=== PATIENT | female | born 1980 | race Caucasian/White ===

== ENCOUNTER 2017-07-27 04:00 | Observation (INO) ==
--- NOTE | 2017-07-27 04:29 | Emergency Department Note ---
Disposition Clinical Impression: SOB (shortness of breath) Chest pain Qualifiers: Chest pain type: unspecified Qualified Code(s): R07.9 - Chest pain, unspecified Disposition: Admitted As Inpatient Condition: Fair Referrals: NONE,PCP [Primary Care Provider] - Forms: ED Satisfaction Letter Time of Disposition: 05:46 Arrhythmia/Palpitations HPI - General Chief Complaint: ED Arrhythmia/Palpitations Stated Complaint: "My wrist Monitor said Heart Issues" Time Seen by Provider: 07/27/17 04:06 Source: patient, family Limitations: no limitations Nursing Notes Reviewed: Yes Vital Signs Reviewed: Yes - History of Present Illness HPI Narrative: 37-year-old female complains of chest pressure and palpitations that started 2 hours ago. Patient states she woke up from sleep and then felt very anxious and instantly felt pain palpitations, and SOB. She complains that she could feel her heart racing and thumping in her chest. Patient states she has chest pressure 7/10 at constant mid substernal without radiation to arms or neck. Denies diaphoresis. Admits to continued shortness of breath. Symptoms are not exacerbated by exertion but is persistent at rest. Patient denies any hemoptysis, recent travel, she has an IUD (paraguard) implanted was placed 2 years ago, she denies any past history for DVTs or blood clots, and no prior PE. - Related Data Home Medications Medication Instructions Recorded Confirmed No Known Home Drugs 07/27/17 07/27/17 Allergies Allergy/AdvReac Type Severity Reaction Status Date / Time Amoxicillin [From Amoxil] AdvReac Vomiting Verified 10/19/15 07:23 All systems ED: reviewed and negative except as stated. Review of Systems: As Per HPI Constitutional: Denies: fever, chills, weakness Eyes: Denies: vision change ENT ED: Denies: congestion Cardiovascular: Reports: chest pain, palpitations. Denies: dyspnea on exertion , orthopnea Respiratory: Reports: dyspnea. Denies: cough, wheezes Gastrointestinal: Reports: nausea. Denies: abdominal pain, vomiting Past Medical History - Past Medical History Attestation: Yes The following information was validated with the patient. Source: patient, nursing notes reviewed Medical history: Reports: other Psychiatric history: Reports: no psych history - Social History Smoking Status: Never smoker Smokeless Tobacco Status: No Alcohol use: Reports: occasionally Drug use: Reports: none Physical Exam Vital Signs Temperature 97.7 F 07/27/17 04:04 Pulse Rate 105 07/27/17 04:04 Respiratory Rate 16 07/27/17 04:04 Blood Pressure 159/88 07/27/17 04:04 O2 Sat by Pulse Oximetry 99 07/27/17 04:04 Temperature 97.7 F 07/27/17 04:04 Pulse Rate 105 07/27/17 04:04 Respiratory Rate 16 07/27/17 04:04 Blood Pressure 159/88 07/27/17 04:04 O2 Sat by Pulse Oximetry 99 07/27/17 04:04 Oxygen Delivery Oxygen Delivery Room Air CONSTITUTIONAL: Well-appearing; well-nourished; A&O X 3, in no apparent distress. Vital signs show tachycardia at 105 and hypertension at 159/88. Tachypnea HEAD: Normocephalic; atraumatic EYES: PERRL, no scleral icterus NOSE: The nose is normal in appearance without rhinorrhea NECK: No JVD or distended neck veins RESP: Normal chest excursion with respiration; breath sounds clear and equal bilaterally; no wheezes, rhonchi, or rales CARD: Regular rhythm, without murmurs, rub or gallop ABD: Non-distended; non-tender, soft, without rigidity, rebound or guarding,no pulsatile mass CHEST: No pain with palpation SKIN: Normal for age and race; warm and dry without diaphoresis ; no apparent lesions EXTREMITIES: Pulses are 2 plus and equal times 4 extremities, no peripheral edema or calf muscle pain - General Limitations: no limitations General appearance: alert, in no apparent distress Course - Reevaluation(s) Reevaluation #1: Patient states the pain symptoms after 3 nitroglycerin sublingually is 1/10 maybe. She states she is very comfortable at this time. Chest pressure and shortness of breath have greatly diminished. Patient received nitroglycerin paste on her chest. Patient's hypertension is now normalized at 132/88. Time: 05:03 Reevaluation #2: D-dimer negative Time: 05:10 Reevaluation #3: Patient still pain free Time: 05:46 - Consultations Consultation #1: Dr. Garcia the hospitalist as accepted patient for admission at 05 for 3 hours in stable condition and pain free Time: 05:45 Vital Signs Temperature 97.7 F 07/27/17 04:04 Pulse Rate 105 07/27/17 04:04 Respiratory Rate 16 07/27/17 04:04 Blood Pressure 159/88 07/27/17 04:04 O2 Sat by Pulse Oximetry 99 07/27/17 04:04 Temperature 97.7 F 07/27/17 04:04 Pulse Rate 83 07/27/17 05:16 Respiratory Rate 18 07/27/17 05:16 Blood Pressure 153/101 07/27/17 05:16 O2 Sat by Pulse Oximetry 98 07/27/17 05:16 Oxygen Delivery Oxygen Delivery Room Air Arrhythmia/Palpitations - MDM Narrative Medical decision making narrative: Patient presents with acute onset chest pressure mid substernal concerning for ACS/[place]. Patient is low risk under heart score and has currently no risk factors but has a family history for cardiac related of grandmother at age 60 and mother had first stent at age 50. Patient's acute sudden onset of tachycardia and shortness of breath are concerning for possible PE. Unable to PERC patient out. Patient is low risk under Wells PE score. D-dimer was ordered which was negative dismissing PE at this time. Patient's pain symptoms were completely reduce nitroglycerin treatment. Patient took 325 mg of aspirin prior to coming in to the ED. IV normal saline 1 L has been given as well. Patient's labs were unremarkable for any hemoglobinopathy, or anything abnormal on her chemistry. Patient's troponin was negative. Patient is low risk with a heart score of 2. Patient is feeling better, but has a sensation that something is a very wrong. Patient was feeling anxious when she arrived but does not have a history of anxiety. Patient states she would not be here if it was not very important. Patient's records show that she is only had 2 ED visits between and 2013. Given the patient's workup is negative and she is considered low risk, I tend to agree with the patient for precipitating a very convincing story with a high risk family record. I recommend admission for the patient for further cardiac evaluation. Patient understands agrees with treatment and plan Dr. Garcia the hospitalist as accepted patient for admission at 0543 hours in stable condition and pain free - Lab Data Lab results reviewed: Yes I reviewed the patient's lab results. Lab results narrative: Short CBC 07/27/17 Range/Units 04:32 WBC 7.9 (4.3-11.1) K/mcL Hgb 12.6 (11.5-15.4) g/dL Hct 39.2 (35.3-44.9) % Plt Count 191 (140-400) K/mcL Neutrophils # 4.6 (1.6-8.9) K/mcL BMP 07/27/17 Range/Units 04:32 Sodium 139 (136-145) mEq/L Potassium 4.5 (3.5-5.1) mEq/L Chloride 107 (98-107) mEq/L Carbon Dioxide 23 (23-29) mEq/L BUN 14 (6-20) mg/dL Creatinine 0.91 (0.60-1.20) mg/dL Glucose 165 H (70-105) mg/dL Calcium 9.0 (8.6-10.3) mg/dL Cardiac Enzymes 07/27/17 Range/Units 04:32 Troponin I < 0.03 (< 0.04) ng/mL Result diagrams: 07/27/17 04:32 07/27/17 04:32 Lab Results 07/27/17 07/27/17 07/27/17 Range/Units 04:32 04:32 04:32 WBC 7.9 (4.3-11.1) K/mcL RBC 4.10 (3.82-4.97) M/mcL Hgb 12.6 (11.5-15.4) g/dL Hct 39.2 (35.3-44.9) % MCV 95.6 (83.0-100.0) fL MCH 30.7 (28.0-33.3) pg MCHC 32.1 (31.6-35.5) g/dL RDW 12.1 (11.5-14.5) % Plt Count 191 (140-400) K/mcL MPV 11.5 (9.4-12.4) fL Immature Gran % 0.4 (0-4) % Seg Neutrophils % 58.5 % Lymphocytes % 30.6 % Monocytes % 7.6 % Eosinophils % 2.3 % Basophils % 0.6 % Neutrophils # 4.6 (1.6-8.9) K/mcL Lymphocytes # 2.4 (0.6-4.6) K/mcL Monocytes # 0.6 (0.0-1.3) K/mcL Eosinophils # 0.2 (0.0-0.6) K/mcL Basophils # 0.1 (0.0-0.2) K/mcL D-Dimer 358 (0-500) ng/mLFEU Sodium 139 (136-145) mEq/L Potassium 4.5 (3.5-5.1) mEq/L Chloride 107 (98-107) mEq/L Carbon Dioxide 23 (23-29) mEq/L BUN 14 (6-20) mg/dL Creatinine 0.91 (0.60-1.20) mg/dL Est GFR ( Amer) > 60 (> 60) Est GFR (Non-Af Amer) > 60 (> 60) BUN/Creatinine Ratio 15 (6-26) Glucose 165 H (70-105) mg/dL Calculated Osmolality 292 (280-300) Calcium 9.0 (8.6-10.3) mg/dL Troponin I < 0.03 (< 0.04) ng/mL - Radiology Data Radiology results reviewed: Yes I reviewed the patient's radiology results. Chest X-Ray 07/27/17 04:32 IMPRESSION: No acute process. D/ / Jc Coronado / Jc Coronado Interpreting Provider: Jc Coronado - EKG Data EKG attestation: Yes I reviewed and interpreted this EKG. EKG results narrative: EKG taken 07/27/2017 at 0409 hrs. shows a sinus tachycardia at a rate of [address] elevations in any leads, very mild ST depressions in aVF, V3. No sign of Brugada, Wellens, WPW. no previous EKG for comparison. Heart Score - Score History: Moderately Suspicious EKG: Non Specific repolarisation Disturbance Age: Less than 45 Risk Factors: No risk factors known Troponin: Less than normal limit HEART Score Total: 2
[2017-07-27] MEDS ORDERED: 0.9 % Sodium Chloride 1,000 ML IVC ONE (04:32)
[2017-07-27] MEDS ORDERED: Nitroglycerin 0.4 MG TAB.SUBL SL ONE (04:36)
[2017-07-27] MEDS: Nitroglycerin 0.4 MG TAB.SUBL SL PRN ×3 (04:40→04:50)
[2017-07-27 04:45] LABS: Basophils # 0.1 K/mcL (0.0-0.2); Basophils % 0.6 %; Eosinophils # 0.2 K/mcL (0.0-0.6); Eosinophils % 2.3 %; Hematocrit 39.2 % (35.3-44.9); Hemoglobin 12.6 g/dL (11.5-15.4); Immature Granulocytes % 0.4 % (0-4); Lymphocytes # 2.4 K/mcL (0.6-4.6); Lymphocytes % 30.6 %; Mean Corpuscular HGB Conc 32.1 g/dL (31.6-35.5); Mean Corpuscular Hemoglobin 30.7 pg (28.0-33.3); Mean Corpuscular Volume 95.6 fL (83.0-100.0); Mean Platelet Volume 11.5 fL (9.4-12.4); Monocytes # 0.6 K/mcL (0.0-1.3); Monocytes % 7.6 %; Neutrophils # 4.6 K/mcL (1.6-8.9); Platelet Count 191 K/mcL (140-400); Red Cell Distribution Width 12.1 % (11.5-14.5); Segmented Neutrophils % 58.5 %
--- NOTE | 2017-07-27 05:03 | Emergency Department Note ---
Disposition Clinical Impression: SOB (shortness of breath) Chest pain Qualifiers: Chest pain type: unspecified Qualified Code(s): R07.9 - Chest pain, unspecified Disposition: Admitted As Inpatient Condition: Fair General Adult HPI - General Chief complaint: ED Arrhythmia/Palpitations Stated complaint: "My wrist Monitor said Heart Issues" Time Seen by Provider: 07/27/17 04:06 Source: patient, family Limitations: no limitations - History of Present Illness Pain Scale: 5 - Related Data Home Medications Medication Instructions Recorded Confirmed No Known Home Drugs 07/27/17 07/27/17 Allergies Allergy/AdvReac Type Severity Reaction Status Date / Time Amoxicillin [From Amoxil] AdvReac Vomiting Verified 10/19/15 07:23 Constitutional: Denies: fever, chills, weakness Cardiovascular: Reports: chest pain, palpitations. Denies: dyspnea on exertion , orthopnea Respiratory: Reports: dyspnea. Denies: cough, wheezes Gastrointestinal: Reports: nausea. Denies: abdominal pain, vomiting Past Medical History - Past Medical History Medical history: Reports: other Psychiatric history: Reports: no psych history - Social History Smoking Status: Never smoker Smokeless Tobacco Status: No Alcohol use: Reports: occasionally Drug use: Reports: none Physical Exam - General Limitations: no limitations General appearance: alert, in no apparent distress Course Vital Signs Temperature 97.7 F 07/27/17 04:04 Pulse Rate 105 07/27/17 04:04 Respiratory Rate 16 07/27/17 04:04 Blood Pressure 159/88 07/27/17 04:04 O2 Sat by Pulse Oximetry 99 07/27/17 04:04 Temperature 97.7 F 07/27/17 04:04 Pulse Rate 83 07/27/17 05:16 Respiratory Rate 18 07/27/17 05:16 Blood Pressure 153/101 07/27/17 05:16 O2 Sat by Pulse Oximetry 98 07/27/17 05:16 Oxygen Delivery Oxygen Delivery Room Air Medical Decision Making - Lab Data Result diagrams: 07/27/17 04:32 07/27/17 04:32 Lab Results 07/27/17 07/27/17 07/27/17 Range/Units 04:32 04:32 04:32 WBC 7.9 (4.3-11.1) K/mcL RBC 4.10 (3.82-4.97) M/mcL Hgb 12.6 (11.5-15.4) g/dL Hct 39.2 (35.3-44.9) % MCV 95.6 (83.0-100.0) fL MCH 30.7 (28.0-33.3) pg MCHC 32.1 (31.6-35.5) g/dL RDW 12.1 (11.5-14.5) % Plt Count 191 (140-400) K/mcL MPV 11.5 (9.4-12.4) fL Immature Gran % 0.4 (0-4) % Seg Neutrophils % 58.5 % Lymphocytes % 30.6 % Monocytes % 7.6 % Eosinophils % 2.3 % Basophils % 0.6 % Neutrophils # 4.6 (1.6-8.9) K/mcL Lymphocytes # 2.4 (0.6-4.6) K/mcL Monocytes # 0.6 (0.0-1.3) K/mcL Eosinophils # 0.2 (0.0-0.6) K/mcL Basophils # 0.1 (0.0-0.2) K/mcL D-Dimer 358 (0-500) ng/mLFEU Sodium 139 (136-145) mEq/L Potassium 4.5 (3.5-5.1) mEq/L Chloride 107 (98-107) mEq/L Carbon Dioxide 23 (23-29) mEq/L BUN 14 (6-20) mg/dL Creatinine 0.91 (0.60-1.20) mg/dL Est GFR ( Amer) > 60 (> 60) Est GFR (Non-Af Amer) > 60 (> 60) BUN/Creatinine Ratio 15 (6-26) Glucose 165 H (70-105) mg/dL Calculated Osmolality 292 (280-300) Calcium 9.0 (8.6-10.3) mg/dL Troponin I < 0.03 (< 0.04) ng/mL Attestation Statement - Attestation Attestation: I examined this patient and my medical decision-making was reviewed with the Resident Physician. I agree with the documented findings, disposition and treatment plan as described except to the extent set forth below. Patient presents to the ED with chief complaint of chest pain or shortness of breath that she woke up with in the middle the night. Describes it as a pressure. No cardiac history. She does have an extensive family history including a mother had her first stent placed in her early 50s. On examination she is in no distress. Heart regular tachycardia. Lungs clear. She is hypertensive. Plan. Cardiac workup. Patient's pain is resolving with nitroglycerin. Workup unremarkable. Patient admitted for further cardiac evaluation.
[2017-07-27] MEDS ORDERED: Nitroglycerin 1 INCH/GM PACKET TP ONE (05:04)
[2017-07-27 05:15] LABS: Troponin I < 0.03 ng/mL (< 0.04)
[2017-07-27 05:17] LABS: BUN/Creatinine Ratio 15 (6-26); Blood Urea Nitrogen 14 mg/dL (6-20); Carbon Dioxide 23 mEq/L (23-29); Chloride 107 mEq/L (98-107); Glucose 165 mg/dL (70-105); Osmolality,Calculated 292 (280-300); Potassium 4.5 mEq/L (3.5-5.1); Sodium 139 mEq/L (136-145); eGFR For African Americans > 60 (> 60); eGFR For Non-African Americans > 60 (> 60)
[2017-07-27] MEDS ORDERED: Naloxone 0.4 MG/ML INJ IVP PRN (05:42)
[2017-07-27] MEDS ORDERED: Acetaminophen 325 MG TABLET PO PRN (05:42)
[2017-07-27] MEDS ORDERED: *HR* HYDROcodone/Acet 5/325 mg TABLET PO PRN (05:42)
[2017-07-27] MEDS ORDERED: Ondansetron 4 MG/2 ML VIAL IVP PRN (05:42)
[2017-07-27] MEDS ORDERED: *HR* LORazepam 0.5 MG TABLET PO PRN (06:05)
--- NOTE | 2017-07-27 06:18 | Internal Med History&Physical ---
Date of Encounter: 07/27/17 Time of Encounter: 06:00 Internal Medicine - H&P: HPI Chief complaint: chest pain Admitted From: Emergency Dept Plans for Post Hospital Care: Home History of present illness: Ms. Parra is a 37 year old female with known PMH of preeclampsia and gestational hypertension pt presented to ER with sudden onset Left side chest pain this morning around 2.00 AM. Pt stated her chest pain located at left chest wall region, more like tightness, heaviness, 7/10 in severity, non radiating and improved with SL Nitro. Pt also mention she does have anxiety / panic attacks in the past, but this CP and palpitations does not feel like that. Her mother had MA when she was 50 y/o. Past Med Surg Social Fam HX - Past Medical History Medical history: other Psychiatric history: no psych history - Social History Smoking Status: Never smoker Smokeless Tobacco Status: No Alcohol use: occasionally Drug use: none - Family History Mother Hx Family Cardiac Disorders: Yes (MA) Internal Medicine - H&P: Meds No Known Home Drugs 07/27/17 [History] 3 Allergy/AdvReac Type Severity Reaction Status Date / Time Amoxicillin [From Amoxil] AdvReac Vomiting Verified 10/19/15 07:23 All Systems PM: A 10-system review of systems was performed and is negative for pertinent findings except as documented above in the HPI. Review of systems: All the systems are reviewed everything is benign except the systems and symptoms I mentioned in the history of present illness - Constitutional Vitals: Temp Pulse Resp BP Pulse Ox 97.7 F 83 18 157/91 98 07/27/17 04:04 07/27/17 05:16 07/27/17 05:59 07/27/17 05:59 07/27/17 05:16 General appearance: Present: A&O X 3, no acute distress, answers questions appropriately - Head Head exam: Present: atraumatic, normal inspection - Neck Neck exam general surgery: Present: supple - Respiratory Respiratory exam: Present: decreased breath sounds. Absent: rales, respiratory distress, rhonchi, wheezes - Cardiovascular Cardiovascular exam: Present: RRR, +S1, +S2. Absent: tachycardia - GI/Abdominal GI/Abdominal exam: Present: normal bowel sounds, soft. Absent: rebound, rigid, tenderness - Extremities Exam Extremities exam: Absent: calf tenderness, pedal edema, tenderness - Back Exam Back exam: Absent: CVA tenderness (L), CVA tenderness (R) - Neurological Exam Neurological exam: Present: alert, oriented X3 - Psychiatric Psychiatric exam: Present: normal affect, normal mood - Skin Skin exam: Absent: rash Internal Med - H&P Results - Labs CBC & Chem 7: 07/27/17 04:32 07/27/17 04:32 Labs: Short CBC 07/27/17 Range/Units 04:32 WBC 7.9 (4.3-11.1) K/mcL Hgb 12.6 (11.5-15.4) g/dL Hct 39.2 (35.3-44.9) % Plt Count 191 (140-400) K/mcL Neutrophils # 4.6 (1.6-8.9) K/mcL BMP 07/27/17 04:32 Sodium 139 Potassium 4.5 Chloride 107 Carbon Dioxide 23 BUN 14 Creatinine 0.91 Glucose 165 H Calcium 9.0 Cardiac Enzymes 07/27/17 Range/Units 04:32 Troponin I < 0.03 (< 0.04) ng/mL - Impressions ITS Impressions Chest X-Ray 07/27/17 04:32 IMPRESSION: No acute process. D/ / Jc Coronado / Jc Coronado Interpreting Provider: Jc Coronado - Assessment and plan (1) Chest pain Current Visit: Yes Status: Acute Assessment and plan: Will admit the pt into Tele for observation Will place pt on timber girdler check serial troponin so far negative troponin EKG reviewed - showed NSR, no acute ischemic changes noticed. TWI noticed in lead III and aVF will start pt on ASA and Nitro PRN for pain Will check FLP Will get stress test today after 2nd set of troponin, since pt is high risk for ACS Qualifiers: Chest pain type: unspecified Qualified Code(s): R07.9 - Chest pain, unspecified (2) SOB (shortness of breath) Current Visit: Yes Status: Acute Assessment and plan: mostly due to anxiety D-Dimer negative CXR - reviewed by my self.. No Acute infiltrates, no consolidation Duoneb PRN (3) Anxiety Current Visit: Yes Status: Acute Assessment and plan: she does have some anxiety too will start her on Ativan PO PRN - Time Spent With Patient Total time spent is greater than 50% in coordination of care (as documented) at patient's floor/unit and/or counseling patient:
[2017-07-27] MEDS ORDERED: Aspirin Enteric Coated 81 MG Tablet PO SCH (09:00)
[2017-07-27 10:29] LABS: Chol/HDL Ratio 2.2 (0-4.9); Cholesterol 156 mg/dL (< 200); HDL Cholesterol 71 mg/dL (40-59); LDL Cholesterol,Calculated 77 mg/dL (0-99); Triglycerides 41 mg/dL (< 150)
[2017-07-27 10:30] LABS: Troponin I < 0.03 ng/mL (< 0.04)
[2017-07-27 16:50] VITALS: BP 140/83
--- NOTE | 2017-07-27 18:47 | Discharge Summary ---
- NOTES TO OUTPATIENT PROVIDER Notes to Outpatient Provider: Need to have further cardiac and GI work up. Date of Encounter: 07/27/17 Time of Encounter: 18:30 - Discharge Diagnosis (1) SOB (shortness of breath) Priority: Primary Status: Acute (2) Chest pain Priority: Primary Status: Acute Qualifiers: Chest pain type: other chest pain Qualified Code(s): R07.89 - Other chest pain; R07.8 - Other chest pain (3) Anxiety Priority: Secondary Status: Chronic Hospital course: Ms. Parra is a 37 year old female presented to ED with chest heaviness. Evaluated and placed in observation for further work up. Ms Parra was placed in observation on med Bliips. Troponins were negative. She could not have stress test as she had nitropaste on her. Gallbladder ultrasound negative. Pt was up ambulating with out difficulty and had no chest pain. Her lipid panel was good. No HTN or DM. At this time she will be discharged for outpatient follow up and stress test ( cannot be done inpatient until Saturday). She understands to return if pain returns. Discharge discussed with: patient, family, nurse - Time Spent with Patient Total time spent providing and/or coordinating discharge services: - Discharge Medications Home Medications: No Known Home Drugs 07/27/17 [History] Allergies/Adverse Reactions: 3 Allergy/AdvReac Type Severity Reaction Status Date / Time Amoxicillin [From Amoxil] AdvReac Vomiting Verified 10/19/15 07:23 Date of admission: 07/27/17 05:54 Primary care physician: PCP NONE Discharging clinician: Grover Gallardo Anticipated date of discharge: 07/27/17 - Constitutional Vitals: Temp Pulse Resp BP Pulse Ox 98.5 F 80 16 140/83 98 07/27/17 16:49 07/27/17 16:49 07/27/17 16:49 07/27/17 16:49 07/27/17 16:49 General appearance: Present: A&O X 3, answers questions appropriately - Head Head exam: Present: normocephalic - Eye Eye exam: Present: conjuntiva pink - ENT ENT exam: Present: mucous membranes dry - Respiratory Respiratory exam: Present: CTAB. Absent: rales, rhonchi, wheezes - Cardiovascular Cardiovascular exam: Present: RRR. Absent: tachycardia - GI/Abdominal GI/Abdominal exam: Present: soft. Absent: tenderness - Extremities Exam Extremities exam: Present: warm. Absent: tenderness - Neurological Exam Neurological exam: Present: alert, oriented X3 - Skin Skin exam: Present: dry, warm - Patient Status Disposition: Home, Self-Care Condition: Good Functional capacity at discharge: independent ambulation Overall status at discharge: patient is progressing back to baseline - Discharge Instructions Instructions: Chest Pain (DC), Anxiety (DC) Follow Up With: NONE,PCP [Primary Care Provider] - (Will call you with Outpatient Nuclear Stress Test appointment. If you do not hear from [facility] concerning Outpatient Nuclear Stress Test, please call: [facility] ) Additional Instructions: Nuclear stress test as outpatient. - Diet and Activity Activity: increase activity as tolerated Diet: low fat, low cholesterol
--- NOTE | 2017-07-31 00:36 | Electrocardiograph Report ---
[place] [id number] Test Date: 2017-07-27 Pat Name: Edna Parra Department: 102 Room: [facility] Gender: F Construction Ironworker: Lindsay : 1980 Requested By: Grover Gallardo Order Number: [id number] Reading MD: Denia Jane Measurements Intervals [place] Rate: 103 P: 58 [place]: 155 QRS: 34 QRSD: 89 T: 19 QT: 330 QTc: 390 Interpretive Statements SINUS TACHYCARDIA ABNORMAL RHYTHM ECG Electronically Signed On 07-31-2017 0:35:07 EDT by Denia Jane
== END 2017-07-27 19:05 | disposition home or self-care (01) ==
LOC: 3NENU 04:00 → EMEROO 04:00 → SUATTDRO 05:54 → 3NENU 05:59
PROVIDERS: ADMIT Family Medicine; ATTEND Internal Medicine